=== PATIENT | female | born 1945 | race Caucasian/White ===

== ENCOUNTER 2024-03-08 08:24 | Emergency (ER) | payer MEDICARE ==
[~2024-03-08] VITALS: Ht 167.6 cm; Wt 71.5 kg
[~2024-03-08 08:24] MED LIST: ADULT LOW DOSE81 MG PO; CALCIUM 600 +1 EAC6 PO; CENTRUM SILVER1 EAC1 PO; COZAAR50 MG PO; PRILOSEC20 MG PO; SIMVASTATIN20 MG PO
[2024-03-08] MEDS ORDERED: MECLIZINE HCL 25 MG TAB PO ONE (09:00)
[2024-03-08 09:02] LABS: BASOPHILS 0.3 % (0-2); EOSINOPHILS 0.7 % (0-6); HEMATOCRIT 41.1 % (35.0-50.0); HEMOGLOBIN 14.6 g/dL (12.0-18.0); LYMPHOCYTES 8.6 % (24-44); MCH 31.3 (27-36); MCHC 35.6 g/dl (30-36); MONOCYTES 5.4 % (0-12); PLATELET COUNT 225 K/uL (140-440); RBC 4.67 M/ul (4.3-5.7); RDW 13.9 (10.5-15.0)
[2024-03-08 09:03] LABS: INR 1.01 (0.80-1.30); PROTIME 12.9 Sec (11.2-14.2)
[2024-03-08 09:05] LABS: PARTIAL THROMBOPLASTIN TIME 25.3 Sec (22.9-41.3)
[2024-03-08 09:11] LABS: ALBUMIN/GLOBULIN RATIO 1.48 (1.1-2.4); ANION GAP 13.7 (7-21); BILIRUBIN, TOTAL 1.2 ng/dL (0.2-1.0); BUN/CREATININE RATIO 10.81 (6.0-28.6); CALCIUM 9.3 mg/dL (8.5-10.1); CREATININE, SERUM 1.11 mg/dL (0.55-1.02); POTASSIUM 3.7 mmol/L (3.5-5.1); PROTEIN, TOTAL 6.7 g/dL (6.4-8.2)
[2024-03-08] MEDS ORDERED: CLOPIDOGREL BISULFATE 75 MG TAB PO ONE (09:45)
[2024-03-08 10:03] LABS: INFLUENZA B NAA NEGATIVE (NEGATIVE); RESPIRATORY SYNCYTIAL VIR NAA NEGATIVE (NEGATIVE)
[2024-03-08 11:58] VITALS: BP 139/64
--- NOTE | 2024-03-09 20:59 | EKG ---
[facility] [address] [facility] [place], [place] [address] Signed Normal sinus rhythm Normal ECG No previous ECGs available Confirmed by Lebron Hagan MD ([id number]) on 03/09/2024 8:59:03 PM Electronically Signed By: LEBRON HAGAN DO 03/09/242058 PATIENT NAME: KILO SYKES Electrocardiogram DATE OF : 43 PHYSICIAN: LEBRON HAGAN DO REPORT #: [id number] REPORT IS CONFIDENTIAL AND NOT TO BE RELEASED WITHOUT AUTHORIZATION
== END 2024-03-08 11:58 | disposition home or self-care (01) ==
LOC: ED 08:24
PROVIDERS: Emergency Medicine
DX: R42 Dizziness and giddiness (principal); R51.9 Headache, unspecified; Z87.891 Personal history of nicotine dependence; Z88.0 Allergy status to penicillin; Z88.2 Allergy status to sulfonamides; Z88.1 Allergy status to other antibiotic agents; Z79.82 Long term (current) use of aspirin; Z79.899 Other long term (current) drug therapy
CPT/HCPCS: 36415; 70450; 70496; 70498; 71045; 80053; 84484; 85025; 85610; 85730; 87502; 93005; 93010; 99284-25; A9270; Q3014; Q9967; U0002

== ENCOUNTER 2024-03-14 11:22 | Observation (INO) | payer MEDICARE ==
[~2024-03-14] VITALS: Ht 167.6 cm; Wt 68.5 kg
--- OUTSIDE RECORDS SUMMARY | 2024-03-14 11:27 | XMS ---
PreManage Notification: KILO SYKES Security [employer] Executive Events No recent Security Events currently on file CRITERIA MET - [facility] - 2 Visits in 30 Days CARE PROVIDERS There are no care providers on record at this time. Isaac has no Care Guidelines for this patient. [facility] (12 MO.) [facility] T[facility] NOTE: Visits indicate total known visits. ED/C VISIT TRACKING (12 MO.) [facility] COMPLAINT: - DIZZINESS 03/08/2024 08:24 [facility] [place] TYPE: Emergency COMPLAINT: - DIZZINESS DIAGNOSES: - Allergy status to other antibiotic agents - Allergy status to penicillin - Allergy status to sulfonamides - Dizziness and giddiness - Headache, unspecified - vermin exterminator (current) use of aspirin - Other longterm (current) drug therapy - Personal history of nicotine dependence INPATIENT VISIT TRACKING (12 MO.) No inpatient visits to display in this time frame [email or web address]
[2024-03-14] MEDS ORDERED: SODIUM CHLORIDE 0.9% 1,000 ML IV PRN (11:45)
[2024-03-14] MEDS ORDERED: MECLIZINE HCL 25 MG TAB PO ONE (11:45)
[2024-03-14] MEDS ORDERED: ondansetron HCL 4 MG/2 ML VIAL IV ONE (11:45)
[2024-03-14] MEDS ORDERED: diazePAM 10 MG/2 ML SYR IV ONE (11:45)
[2024-03-14 12:12] LABS: BASOPHILS 0.2 % (0-2); EOSINOPHILS 0.2 % (0-6); HEMATOCRIT 40.8 % (35.0-50.0); HEMOGLOBIN 14.5 g/dL (12.0-18.0); LYMPHOCYTES 5.2 % (24-44); MCH 31.8 (27-36); MCHC 35.5 g/dl (30-36); MCV 89.4 fl (81-99); MONOCYTES 4.4 % (0-12); PLATELET COUNT 167 K/uL (140-440); RBC 4.56 M/ul (4.3-5.7)
[2024-03-14 12:29] LABS: ALBUMIN 3.7 g/dL (3.4-5.0); ALBUMIN/GLOBULIN RATIO 1.03 (1.1-2.4); ANION GAP 16.8 (7-21); BILIRUBIN, TOTAL 1.7 ng/dL (0.2-1.0); CALCIUM 9.5 mg/dL (8.5-10.1); CREATININE, SERUM 1.5 mg/dL (0.55-1.02); POTASSIUM 3.8 mmol/L (3.5-5.1); PROTEIN, TOTAL 7.3 g/dL (6.4-8.2)
[2024-03-14 12:38] LABS: PARTIAL THROMBOPLASTIN TIME 20.2 Sec (22.9-41.3)
[2024-03-14 12:39] LABS: INR 1.14 (0.80-1.30); PROTIME 13.8 Sec (11.2-14.2)
[2024-03-14] MEDS ORDERED: ACETAMINOPHEN 500 MG TAB PO ONE (14:00)
[2024-03-14] MEDS ORDERED: CEFTRIAXONE/SODIUM CHLORIDE 2 GM/100 ML PIGGYBACK IV ONE (15:15)
[2024-03-14 15:25] LABS: INFLUENZA B NAA NEGATIVE (NEGATIVE); RESPIRATORY SYNCYTIAL VIR NAA NEGATIVE (NEGATIVE)
[2024-03-14 15:53] LABS: INR 1.22 (0.80-1.30); PARTIAL THROMBOPLASTIN TIME 29.4 Sec (22.9-41.3); PROTIME 14.7 Sec (11.2-14.2)
[2024-03-14 16:01] LABS: LACTIC ACID, BLOOD 1.3 mmol/L (0.4-2.0)
[2024-03-14] MEDS ORDERED: ACETAMINOPHEN 325 MG TAB PO PRN (17:30)
[2024-03-14] MEDS ORDERED: ondansetron HCL 4 MG/2 ML VIAL IV PRN (17:30)
[2024-03-14] MEDS ORDERED: CLOPIDOGREL BISULFATE 75 MG TAB PO ONE (18:00)
--- NOTE | 2024-03-14 18:25 | NUR ---
RECIEVED BEDSIDE REPORT FROM ZAIRA MUÑOZ. PT MOVED TO MS RM 120 VIA STRETCHER. PT ABLE TO STAND AND PIVOT INTO BED SBA, W/O DIFFICULTY. PT ORIENTED TO CALL LIGHT, WITH IN REACH. FRANKLYN IN REPORT PT WAS FOUND STANDING IN ROOM W/O ASSISTANCE. PT IS WEAK, BED ALARM ON FOR SAFETY. PT DENIES ANY DISCOMFORT AT THIS TIME. WARM BLANKETS PROVIDED.
[2024-03-14 18:27] VITALS: BP 118/46
--- NOTE | 2024-03-14 19:45 | NUR ---
GOT REPORT FROM DAY SHIFT NURSE. PATIENT CURRENTLY ASLEEP, REGULAR RESPIRATIONS NOTED.
--- NOTE | 2024-03-14 20:18 | NUR ---
verbal order read back from dr morataya for tele orders. this rn to place order.
[2024-03-14] MEDS ORDERED: ATORVASTATIN 40 MG TAB PO SCH (21:00)
--- NOTE | 2024-03-14 21:22 | NUR ---
PATIENT WOKE UP BY THIS NURSE TO PLACE TELE LEADS ON. MEDICATIONS GIVEN. PATIENT HAS WATER AT BEDSIDE. A&0 X4. BED ALARM ON. DENIES ANY OTHER CARES AT THIS TIME.
[2024-03-14 21:39] VITALS: BP 97/47
--- NOTE | 2024-03-14 21:42 | NUR ---
RECORD PRESS SUPERVISOR OBTAINED VITALS. NO NEW I&O AT THIS TIME. CALL LIGHT WITHIN REACH. RN NOTIFED OF B/P OF .
[2024-03-14 21:59] VITALS: BP 113/48
--- NOTE | 2024-03-14 22:00 | NUR ---
[employer] PLASTERER RECHECKED PT B/P. RN NOTIFED. PT STATES NO NEEDS AND RESEARCH ENGINEER IN ROOM.
--- NOTE | 2024-03-14 22:02 | NUR ---
REMAINING ADMISSION COMPLETED, pt RESTING IN BED, ON RA. RR EVEN AND UNLABORED. BED ALARM ON AND CALL LIGHT IN REACH, TELE REMAINS IN PLACE-SINUS RHYTHM PER MONITOR. pt DENIES ADDITIONAL NEEDS OR CONCERNS. PRIMARY RN AWARE AND UPDATED.
--- NOTE | 2024-03-14 22:21 | NUR ---
PATIENT ALERT AND ORIENTED. PATIENT ABLE TO STAY ON CONVERSATION WITH NO PROBLEM. PATIENT IS SLEEPY AND WOULD LIKE TO GET SOME REST. PATIENT HAS BED ALARM ON, WATER AT BEDSIDE. MEDICATIONS GIVEN. DENIES PAIN. BED IN LOW POSITION. P
--- NOTE | 2024-03-14 23:44 | NUR ---
PATIENT RESTING, REGULAR RATE AND RESPIRATIONS.
--- NOTE | 2024-03-15 00:12 | NUR ---
Pt report received from ZAIRA Tabor
[2024-03-15 01:41] VITALS: BP 120/52
--- NOTE | 2024-03-15 01:43 | NUR ---
MACHINING DEPARTMENT SUPERVISOR OBTAINED VITALS. NO NEW I&O AT THIS TIME. PT STATES NO NEEDS AND CALL LIGHT IS WTIHIN REACH AND BED ALARM IS ON.
--- NOTE | 2024-03-15 04:02 | NUR ---
In with pt to assist her to the toilet to void. Realized, too late, that there was not a hat in the toilet to collect urine. SBA as pt ambulated to and from the toilet without issue. Pt is alert and oriented x3. Pt states she is feeling a little dizzy as she is back in bed. T97.9 (oral), P78, R18, BP 135/52 (70), SPO2 95% on room air.Side rails up x4, call light in reach, bed alarm on
[2024-03-15 04:05] VITALS: BP 135/52
[2024-03-15 05:24] LABS: BASOPHILS 0.3 % (0-2); EOSINOPHILS 0.9 % (0-6); HEMATOCRIT 35.4 % (35.0-50.0); HEMOGLOBIN 12.6 g/dL (12.0-18.0); MCH 31.7 (27-36); MCHC 35.4 g/dl (30-36); MCV 89.6 fl (81-99); MONOCYTES 9.9 % (0-12); NEUTROPHILS 78.9 % (39-80); PLATELET COUNT 165 K/uL (140-440); RBC 3.96 M/ul (4.3-5.7); RDW 14.1 (10.5-15.0)
[2024-03-15 05:38] LABS: ANION GAP 10.7 (7-21); BUN/CREATININE RATIO 14.59 (6.0-28.6); CALCIUM 8.7 mg/dL (8.5-10.1); CREATININE, SERUM 1.37 mg/dL (0.55-1.02); MAGNESIUM 2.3 mg/dL (1.8-2.4); POTASSIUM 3.7 mmol/L (3.5-5.1)
--- NOTE | 2024-03-15 07:46 | NUR ---
PT AWAKE IN BED, DENIES NEEDS. CALL LIGHT IN REACH. BED ALARM ON FOR PT SAFETY.
--- NOTE | 2024-03-15 07:54 | NUR ---
THIS RN ASSISTED PT TO THE RECLINER, PT DENIED NEEDING TO USE THE RESTROOM AT THIS TIME. PLACED AN CHAIR ALARM PAD FOR PT SAFETY. CALL LIGHT IN REACH. DENTURES GIVEN FOR BREAKFAST.
[2024-03-15] MEDS ORDERED: ASPIRIN 81 MG CHEW PO SCH (08:00)
[2024-03-15 08:38] LABS: BILIRUBIN, URINE NEGATIVE (negative); BLOOD/HGB, URINE TRACE-L (Negative); KETONE, URINE NEGATIVE (Negative); LEUK ESTERASE, URINE SMALL (negative); NITRITE, URINE NEGATIVE (negative)
--- NOTE | 2024-03-15 08:40 | NUR ---
MORNING ASSESSMENT COMPLETE. PT IS SITTING IN RECLINER. WALKED TO THE RESTROOM. UA PROVIDED. BREAKFAST SET UP. CHAIR ALARM ON FOR SAFETY. CALL LIGHT IN REACH.
[2024-03-15 08:44] LABS: BACTERIA, URINE RARE /hpf (negative); CASTS, URINE NONE SEEN \\lpf; COLLECTION TYPE, URINE CLEAN CATCH; CRYSTALS, URINE NONE SEEN (0-1+); REFLEX CULTURE, URINE Yes (No); WHITE BLOOD CELLS, URINE 41-50 /HPF (0-5)
[2024-03-15] MEDS ORDERED: ENOXAPARIN SODIUM 40 MG/0.4 ML SYR SUB-Q SCH (09:00)
[2024-03-15] MEDS ORDERED: CLOPIDOGREL BISULFATE 75 MG TAB PO SCH (09:00)
--- NOTE | 2024-03-15 10:00 | NUR ---
PT IS AWAKE IN RECLINER, SON AT BEDSIDE. CALL LIGHT IN REACH.
[2024-03-15] MEDS ORDERED: CEFTRIAXONE/SODIUM CHLORIDE 1 GM/100 ML PIGGYBACK IV STA (10:23)
[2024-03-15] MEDS ORDERED: LIPITOR40 MG PO (10:28)
[2024-03-15] MEDS ORDERED: CLOPIDOGREL75 MG PO (10:28)
[2024-03-15] MEDS ORDERED: ASPIRIN81 MG PO (10:29)
[2024-03-15] MEDS ORDERED: LEVOFLOXACIN250 MG PO (10:29)
[2024-03-15 11:22] VITALS: BP 118/51
[2024-03-15 11:24] VITALS: BP 118/51
[2024-03-15] MEDS ORDERED: PHARMACY RENAL DOSE ADJUSTMENT 1 DOSE MISC PO SCH (12:00)
--- NOTE | 2024-03-15 19:29 | EKG ---
[facility] [address] [facility] [place], [place] [address] Signed Sinus tachycardia Otherwise normal ECG When compared with ECG of 08-MAR-2024 09:18, No significant change was found Confirmed by Raven Robison MD ([id number]) on 03/15/2024 7:28:59 PM Electronically Signed By: RAVEN ROBISON MD 03/15/241928 PATIENT NAME: KILO SYKES Electrocardiogram DATE OF : 43 PHYSICIAN: RAVEN ROBISON MD REPORT #: [id number] REPORT IS CONFIDENTIAL AND NOT TO BE RELEASED WITHOUT AUTHORIZATION
--- NOTE | 2024-03-15 20:06 | NUR ---
CALL FROM MANUEL IN LAB, CRITICAL BLOOD CULTURES. PER MANUEL, GRAM NEGATIVE RODS IN ANAEROBIC BOTTLE ONLY, READ BACK TO CONFIRM. pt WAS DISCHARGED EARLIER TODAY ON DAYSHIFT. PHONE CALL MADE TO DR GAMBLE (WHO WAS ADMITTING MD FOR THE pt) AND NOTIFIED. NO NEW ORDERS RECEIVED AT THIS TIME.
--- NOTE | 2024-03-15 20:12 | NUR ---
CALL FROM MANUEL IN LAB, CRITICAL BLOOD CULTURES. PER MANUEL, GRAM - RODS IN ANAEROBIC BOTTLE ONLY. pt WAS DISCHARGED EARLIER TODAY ON DAYSHIFT. PHONE CALL MADE TO DR GAMBLE (WHO WAS ADMITTING MD FOR THE pt) AND NOTIFIED. NO NEW ORDERS RECEIVED AT THIS TIME.
[2024-03-16] MEDS ORDERED: LEVOFLOXACIN500 MG PO (10:21)
[2024-03-16] MEDS ORDERED: LEVOFLOXACIN750 MG PO (10:21)
== END 2024-03-15 11:35 | disposition home or self-care (01) ==
LOC: ED 11:22 → MS 11:23
PROVIDERS: Emergency Medicine; ADMIT Student in an Organized Health Care Education/Training Program; ATTEND Student in an Organized Health Care Education/Training Program
DX: I63.543 Cerebral infarction due to unspecified occlusion or stenosis of bilateral cerebellar arteries (principal); N39.0 Urinary tract infection, site not specified; E78.5 Hyperlipidemia, unspecified; Z88.0 Allergy status to penicillin; Z88.2 Allergy status to sulfonamides; Z88.1 Allergy status to other antibiotic agents; Z79.82 Long term (current) use of aspirin; Z79.899 Other long term (current) drug therapy; Z87.891 Personal history of nicotine dependence
CPT/HCPCS: 36415; 51701; 70551; 71045; 80048; 80053; 81001; 83605; 83735; 85025; 85610; 85730; 87040; 87088; 87502; 93005; 93010; 96372; 96376; 97161; 99285-25; A9270; G0378; J0696; J1650; J2405; J3360; J7030; U0002